=== PATIENT | female | born 1940 | race African-American/Black ===

== ENCOUNTER 2017-01-27 13:09 | Emergency (ER) | payer MEDICAID ==
[~2017-01-27] VITALS: Ht 160 cm; Wt 59.0 kg
[~2017-01-27 13:09] MED LIST: ALEN70TA46 PO; AMLO2.5T45 PO; ATOR10TA PO; BENA20TA3 PO; CALC-25 PO; FAMO20TA8 PO; LEVO500T2 PO; METF500T4 PO; NEPVIT PO; PRED5DRO7 EACHEYE
[2017-01-27] MEDS ORDERED: MORPHINE SULFATE 4 MG/ML CPJ (NOT FOR IM USE) IV ONE (13:45)
[2017-01-27] MEDS ORDERED: ONDANSETRON HCL 4MG/2ML VIAL IV ONE (13:45)
[2017-01-27 14:17] LABS: BASOPHILS % 0.3 % (0.0-2.0); HEMATOCRIT. 42.8 % (36.0-48.0); HEMOGLOBIN. 14.3 g/dL (12.0-16.0); LYMPHOCYTES % 11.9 % (20.0-50.0); MEAN CORPUSCULAR HEMOGLOBIN 28.4 pg (28.0-32.0); MEAN CORPUSCULAR VOLUME 84.9 fL (81.0-99.0); MEAN PLATELET VOLUME 9.2 fl (7.4-10.4); NEUTROPHILS % 83.8 % (40.0-76.0); PLATELET 292 x1000/uL (130-400); RED BLOOD CELL COUNT 5.04 mill/uL (4.2-5.4); RED CELL DISTRIBUTION WIDTH 13.7 % (11.6-14.6)
[2017-01-27 14:18] LABS: INR 1.1; PROTHROMBIN TIME 11.4 sec (9.4-11.6)
[2017-01-27 14:19] LABS: CHLORIDE 96 mEq/L (98-107)
[2017-01-27 14:28] LABS: CARBON DIOXIDE 24 mEq/L (21-32)
[2017-01-27 15:57] VITALS: BP 165/88
== END 2017-01-27 16:20 | disposition home or self-care (01) ==
LOC: ER 13:09
DX: R10.13 Epigastric pain (principal); K57.90 Diverticulosis of intestine, part unspecified, without perforation or abscess without bleeding; E11.9 Type 2 diabetes mellitus without complications; I10 Essential (primary) hypertension; N28.1 Cyst of kidney, acquired; I31.3 Pericardial effusion (noninflammatory)
CPT/HCPCS: 36415; 74176; 80053; 83690; 85025; 85610; 93005; 96374; 96375; 99285; J2270; J2405; Z7610

== ENCOUNTER 2018-05-06 14:24 | Emergency (ER) | payer MEDICAID ==
[~2018-05-06] VITALS: Ht 167.6 cm; Wt 55.0 kg
[~2018-05-06 14:24] MED LIST changes: +BENA20TA10 PO; -BENA20TA3 PO; +METF-414 PO; -METF500T4 PO
[2018-05-06] MEDS ORDERED: ONDANSETRON HCL 4MG/2ML INJ IV STA (14:42)
[2018-05-06] MEDS ORDERED: SODIUM CHLORIDE 0.9% 1,000 ML IV ONE (14:42)
[2018-05-06 16:11] LABS: CHLORIDE 101 mEq/L (98-107)
[2018-05-06 16:13] LABS: BASOPHILS % 0.8 % (0.0-2.0); EOSINOPHILS % 2.4 % (0.0-5.0); HEMATOCRIT. 37.4 % (36.0-48.0); HEMOGLOBIN. 12.5 g/dL (12.0-16.0); MEAN CORPUSCULAR HEMOGLOBIN 29.1 pg (28.0-32.0); MEAN CORPUSCULAR VOLUME 87.1 fL (81.0-99.0); MEAN PLATELET VOLUME 8.7 fl (7.4-10.4); MONOCYTES % 7.7 % (2.0-8.0); NEUTROPHILS % 58.1 % (40.0-76.0); PLATELET 317 x1000/uL (130-400); RED CELL DISTRIBUTION WIDTH 14.2 % (11.6-14.6)
[2018-05-06] MEDS ORDERED: POTASSIUM CHLORIDE 20MEQ TABLET SR PO NR (17:30)
[2018-05-06 18:31] VITALS: BP 154/60
== END 2018-05-06 18:36 | disposition home or self-care (01) ==
LOC: ER 14:24
DX: R55 Syncope and collapse (principal); E11.9 Type 2 diabetes mellitus without complications; I10 Essential (primary) hypertension
CPT/HCPCS: 36415; 70450; 71045; 80053; 83880; 84484; 85025; 93005; 96361; 96374; 99284; J2405; J7030